=== PATIENT | male | born 1980 | race African-American/Black ===

== ENCOUNTER 2021-04-25 15:03 | Emergency (ER) | payer OTHER, SELFPAY ==
--- NOTE | ~2021-04-25 | XR_ITS ---
EXAMINATION: XR tibia fibula LT 2V INDICATION: Left ankle pain, initial encounter TECHNIQUE: Two views of the left tibia and fibula are obtained on four radiographs. COMPARISON: None available FINDINGS: There is anterior soft tissue swelling overlying the distal tibia. No underlying osseous ab normality is identified. There is no radiopaque foreign body. 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 IMPRESSION: 1. Anterior soft tissue swelling of the leg without acute osseous abnormality. Reviewed, dictated and finalized at location [facility]
[2021-04-25 15:07] VITALS: BP 130/72; PULSE 88; RESP 16; TEMP 36.3; O2SAT 99
--- NOTE | 2021-04-25 16:10 | ED.WOUNDLAC ---
HPI - Wound/Laceration General Chief Complaint: Wound/Laceration <Lydia Comer PA-C - Last Filed: 04/25/21 19:11> Stated Complaint: leg lac <JAMES Benito Last Filed: 04/25/21 19:11> Time Seen by Provider: 04/25/21 15:22 <Lydia Comer PA-C - Last Filed: 04/25/21 19:11> Source: patient <JAMES Benito Last Filed: 04/25/21 19:11> Mode of arrival: ambulatory <JAMES Benito Last Filed: 04/25/21 19:11> Limitations: no limitations <JAMES Benito Filed: 04/25/21 19:11> History of Present Illness HPI narrative: Patient is 40-year-old male who presents to the ED from urgent care with complaints of a laceration to his left lower fraga. Patient reports he slipped on ice this morning and hit his fraga against a car door. He has since developed significant swelling and hematoma surrounding the wound. Patient denies any other injuries, head injury, LOC, N/V, weakness, fevers/chills. His tetanus is up-to-date. He is not on any anticoagulation. <Lydia Comer PA-C - Last Filed: 04/25/21 19:11> Related Data Home Medications: Home Medications Medication Instructions Recorded Confirmed No Home Medications 04/25/21 04/25/21 <Lydia Comer PA-C - Last Filed: 04/25/21 19:11> Allergies/Adverse Reactions: Allergies Allergy/AdvReac Type Severity Reaction Status Date / Time No Known Allergies Allergy Verified 04/25/21 15:03 <Lydia Comer PA-C - Last Filed: 04/25/21 19:11> Review of Systems Review of Systems: CONSTITUTIONAL: Denies fever, chills, or sweats. CARDIOVASCULAR: Denies chest pain. RESPIRATORY: Denies dyspnea. GASTROINTESTINAL: Denies nausea, vomiting. SKIN: Reports laceration to left lower fraga with surrounding swelling and hematoma. MUSCULOSKELETAL: Denies back pain, joint pain, or myalgia. NEUROLOGIC: Denies headache, head injury, LOC, numbness, or weakness. <Lydia Comer PA-C - Last Filed: 04/25/21 19:11> All systems reviewed & are unremarkable except as noted in HPI and below <Lydia Comer PA-C - Last Filed: 04/25/21 19:11> PMFSH Past Medical History Medical History: Medical History (Updated 04/25/21 @ 18:04 by Lydia Comer PA-C) No significant past medical history <Lydia Comer PA-C - Last Filed: 04/25/21 19:11> Surgical History Surgical History: Surgical History (Updated 04/25/21 @ 16:13 by Lydia Comer PA-C) No pertinent past surgical history <Lydia Comer PA-C - Last Filed: 04/25/21 19:11> Social History Social History: Social History (Updated 04/25/21 @ 16:13 by Lydia Comer PA-C) Smoking status: Never smoker <Lydia Comer PA-C - Last Filed: 04/25/21 19:11> Exam Narrative: APPEARANCE: Well appearing, no pain in distress, well-nourished. HEAD: Normocephalic atraumatic. NECK: Supple. No adenopathy, no masses. RESPIRATORY: Airway patent, respirations nonlabored. Clear to auscultation bilaterally, no rales, rhonchi, wheezing. CARDIOVASCULAR: Regular rate and rhythm without murmurs rubs or gallops. MUSCULOSKELETAL: Moves all extremities. Strength/ROM/sensation intact in LLE. NEURO: A&OX3. Cranial nerves II - XII grossly intact. Good gait. Good coordination SKIN: Warm, dry. 3.5 cm flap laceration to left anterior fraga with significant surrounding soft tissue swelling. Hematoma present within wound with active bleeding. PSYCHIATRIC: Normal affect/mood, normal interaction. <Lydia Comer PA-C - Last Filed: 04/25/21 19:11> Course QUALITY OFFICER/PA Physician Supervision I saw and evaluated this patient myself I agree with the documentation. <Olu Bardales MD - Last Filed: 04/25/21 19:41> Vital Signs Vital signs: Vital Signs Temperature 36.3 C L 04/25/21 15:07 Pulse Rate 88 04/25/21 15:07 Respiratory Rate 16 04/25/21 15:07 Blood Pressure 130/72 04/25/21 15:07 Pulse Oximetry 99 04/25/21 15:07 Temperature 36.3 C L 04/25/21 15
[2021-04-25 19:09] VITALS: BP 132/78; PULSE 76; RESP 20; O2SAT 99
== END 2021-04-25 19:10 | disposition home or self-care (01) ==
PROVIDERS: Emergency Provider Emergency Medicine
DX: S81.812A Laceration without foreign body, left lower leg, initial encounter (principal); W00.0XXA Fall on same level due to ice and snow, initial encounter
CPT/HCPCS: 12001; 73590; 99283

== ENCOUNTER 2021-04-28 09:27 | Emergency (ER) | payer OTHER, SELFPAY ==
--- NOTE | 2021-04-28 09:35 | ED.ABDPAIN ---
HPI - Abdominal Pain General Chief Complaint: Abdominal Pain Stated Complaint: Abdominal Pain Time Seen by Provider: 04/28/21 09:35 Source: patient, RN notes reviewed and old records reviewed Mode of arrival: ambulatory Limitations: no limitations History of Present Illness HPI narrative: 40-year-old male presents to the [facility] with complaints of nausea, vomiting and diarrhea. Also would like a wound to the left lower anterior leg checked. Wants to make sure it is not infected. Denies any abdominal pain or chest pain. Denies fevers. Denies shortness of breath. Patient states that he had stitches placed on Tuesday, 3 days ago and wants to wound check but is concerned the stitches are causing his nausea vomiting and diarrhea. Reports having 3 episodes of diarrhea yesterday. Is able to drink water without difficulty. Last time he ate solid food he states was yesterday. MD elicited complaint: abdominal pain Related Data Home Medications Medication Instructions Recorded Confirmed No Home Medications 04/25/21 04/25/21 Allergies Allergy/AdvReac Type Severity Reaction Status Date / Time No Known Allergies Allergy Verified 04/25/21 15:03 Review of Systems Review of Systems: All systems reviewed & are unremarkable except as noted in HPI and below Constitutional: Constitutional: Reports no additional constitutional complaints, Denies chills and Denies fever(s) Eyes: Eyes: Reports no additional eye complaints ENT: Reports system reviewed and no additional complaints, except as documented Cardiovascular: Cardiovascular: Reports no additional cardiovascular complaints and Denies chest pain Respiratory: Respiratory: Reports no additional respiratory complaints, Denies cough and Denies dyspnea Gastrointestinal: Gastrointestinal: Reports no additional gastrointestinal complaints, Denies abdominal pain, Reports diarrhea, Reports nausea and Reports vomiting Musculoskeletal: Musculoskeletal: Reports no additional musculoskeletal complaints Integumentary/Breasts: Skin/Breast: Reports system reviewed and no additional complaints, except as docu Neurologic: Reports system reviewed and no additional complaints, except as documented Psychiatric: Psychiatric: Reports no additional psychiatric complaints Allergic/Immunologic: Allergic/Immunologic: Reports no additional allergic/immunologic complaints PMFSH Past Medical History Medical History No significant past medical history Surgical History Surgical History No pertinent past surgical history Social History Social History Smoking status: Never smoker Comments At the time of my signature, I reviewed and agree with the nursing past medical, surgical, social, and family history. There is no relevant family history pertinent to the patient complaint. Exam Const: General: healthy appearing, no acute distress and alert Nutritional Appearance: well nourished Orientation/consciousness: patient oriented x3 Limitations: no limitations HENMT: Head: normal to inspection Ears: external ears normal Eyes: Pupils: Equal, round and reactive pupils present Neck: Neck: normal visual inspection, no lymphadenopathy and no meningeal signs Chest: Chest palpation & inspection: normal inspection of the chest Resp: Effort & Inspection: normal respiratory effort and no use of accessory muscles Auscultation: clear to auscultation bilaterally, no crackles, no rales, no rhonchi and no wheezes Cardio: Rate: regular rate Rhythm: regular rhythm GI: GI Palp: Yes Soft to palpation, No Tenderness to palpation present (GI), No Guarding due to palpation present (GI) and No Rebound tenderness present Auscultation: Hyperactive bowel sounds present Skin: General skin exam: normal color Rashes: no rashes Wounds: wounds note
[2021-04-28 09:40] VITALS: BP 123/76; PULSE 85; RESP 18; TEMP 36.3; O2SAT 99
== END 2021-04-28 10:02 | disposition home or self-care (01) ==
PROVIDERS: Emergency Provider Nurse Practitioner
DX: R11.2 Nausea with vomiting, unspecified (principal); R19.7 Diarrhea, unspecified; S81.812A Laceration without foreign body, left lower leg, initial encounter; X58.XXXA Exposure to other specified factors, initial encounter
CPT/HCPCS: 99211; G0463